=== PATIENT | male | born 1980 | race Caucasian/White ===

== ENCOUNTER 2019-10-06 11:09 | Outpatient (CLI) | payer OTHER, SELFPAY ==
--- NOTE | ~2019-10-06 | XR_ITS ---
EXAMINATION: XR chest 2V EXAM DATE: 10/06/2019 11:37 INDICATION: Cough and shortness of breath. TECHNIQUE: Frontal and lateral projections of the chest obtained and reviewed. There is no prior danie dy for comparison. FINDINGS: The lungs are clear. There are no pleural effusions. The cardiomediastinal silhouette is within normal limits. There is no pneumothorax suspected. The bones and soft tissues are unremarkab le. IMPRESSION: Unremarkable chest x-ray exam. Reviewed, dictated and finalized at location B. REMOVER
[2019-10-06 11:58] LABS: Influenza Control Positive
== END 2019-10-06 11:10 | disposition home or self-care (01) ==
PROVIDERS: PCP Internal Medicine; Visit Provider Physician Assistant
DX: R05 Cough (principal); R06.02 Shortness of breath; R68.89 Other general symptoms and signs
CPT/HCPCS: 71046; 87804

== ENCOUNTER 2020-10-15 17:12 | Outpatient (CLI) | payer OTHER, SELFPAY | END 2020-10-15 17:13 | disposition home or self-care (01) | LOC: ANHCOVIDVC 17:12 | PROVIDERS: PCP Internal Medicine | DX: Z23 Encounter for immunization (principal) | CPT/HCPCS: 0001A; 91300 ==

== ENCOUNTER 2020-11-05 17:13 | Outpatient (CLI) | payer OTHER, SELFPAY | END 2020-11-05 17:14 | disposition home or self-care (01) | LOC: ANHCOVIDVC 17:13 | PROVIDERS: PCP Internal Medicine | DX: Z23 Encounter for immunization (principal) | CPT/HCPCS: 0002A; 91300 ==

== ENCOUNTER 2022-05-05 15:35 | Outpatient (CLI) | payer OTHER, SELFPAY ==
--- NOTE | ~2022-05-05 | XR_ITS ---
XR knee RT 3V 05/05/2022 16:02 INDICATION: Right knee pain after fall PROCEDURE: 3 views right knee COMPARISON: 02/08/2014 FINDINGS: Fracture, dislocation or subluxation is not identified. No significant joint effusion. Cent er The soft tissues appear within normal limits. No foreign bodies are identified. IMPRESSION: 1: NO ACUTE BONE OR JOINT ABNORMALITY IDENTIFIED. Reviewed, dictated and finalized at location B.
== END 2022-05-05 15:36 | disposition home or self-care (01) ==
PROVIDERS: PCP Internal Medicine; Visit Provider Physician Assistant
DX: M25.561 Pain in right knee (principal)
CPT/HCPCS: 73562

== ENCOUNTER → 2022-06-03 16:14 | Outpatient (CLI) | payer OTHER, SELFPAY ==
--- NOTE | ~2022-06-03 | MR_ITS ---
EXAMINATION: MR knee RT wo con DATE: 06/03/2022 17:14 INDICATION: Right knee pain TECHNIQUE: Magnetic resonance imaging (MRI) of the right knee was performed without intravenous contr ast. Sequences included coronal PD-weighted FSE, coronal PD-weighted FS FSE, sagittal T2-weighted FS E, sagittal PD-weighted FS FSE and axial PD weighted fat saturated FSE. COMPARISON: None. FINDINGS: Medial compartment: Medial meniscus is normal. Articular cartilage is normal. Lateral compartment: Lateral meniscus is normal. Articular cartilage is normal. Patellofemoral compartment: Articular cartilage is normal. Ligaments and tendons: The anterior cruciate ligament demonstrates a normal angle relative to Blumensaat line. It appears th ickened with increased intrasubstance signal surrounding intact appearing linear ligament fibers with a celery stalk appearance consistent with mucoid degeneration without discrete tear. Posterior cru ciate ligament is normal. The medial collateral ligament and fibular collateral ligament complex are normal. The extensor mechanism is normal. The visualized medial and lateral hamstring tendons as well as the iliotibial band are normal. Fluid: Physiologic amount of fluid in the joint space. No loose osteochondral bodies identified. There is a small medial plical band which does not extend across the medial rim of the medial trochlea. Osseous/other: Normal marrow signal. No fracture or pathologic marrow replacing process. IMPRESSION: 1. Mucoid degeneration of the anterior cruciate ligament without discrete tear or secondary signs of tear such as meniscal tear, other ligament injuries or anterior subluxation of the tibia. Correlate w ith physical exam to asses for degree of functional competence. Reviewed, dictated and finalized at location A. IMPRESSION: 1. Mucoid degeneration of the anterior cruciate ligament without discrete tear or secondary signs of tear such as meniscal tear, other ligament injuries or an terior subluxation of the tibia. Correlate with physical exam to asses for degr ee of functional competence.
== END ==
PROVIDERS: PCP Internal Medicine; Visit Provider Nurse Practitioner Family
DX: M25.561 Pain in right knee (principal)
CPT/HCPCS: 73721

== ENCOUNTER 2022-10-09 11:48 | Emergency (ER) | payer BC, SELFPAY ==
[2022-10-09 11:57] VITALS: BP 105/77; PULSE 80; RESP 18; TEMP 36.1; O2SAT 97
--- NOTE | 2022-10-09 12:22 | ED.SKABFB ---
HPI - Skin/Abscess/Foreign Bdy General Chief complaint: Skin/Abscess/Foreign Body Stated complaint: Insect Bite Lt Hand Time Seen by Provider: 10/09/22 12:12 Source: patient Mode of arrival: ambulatory Limitations: no limitations History of Present Illness HPI narrative: Patient presents today with an insect bite to his left hand. He was bit on the dorsum of his hand just 1 hour prior to arrival. He did not see what this shows bit/stung him. Reports pain, but denies any itching. Currently rates his pain 5/10. He has not tried any yciq-hwz-hqarkws treatment prior to arrival. Related Data Allergies Allergy/AdvReac Type Severity Reaction Status Date / Time No Known Allergies Allergy Verified 10/09/22 12:09 Review of Systems Review of Systems: CONSTITUTIONAL: Denies body aches, fever, chills, or sweats. EYES: Denies visual changes, redness, or discharge. ENT: Denies rhinorrhea, congestion, sore throat, or otalgia. CARDIOVASCULAR: Denies chest pain, palpitations, or edema. RESPIRATORY: Denies cough or dyspnea. GASTROINTESTINAL: Denies abdominal pain, nausea, vomiting, or diarrhea. GENITOURINARY: Denies dysuria or hematuria. SKIN: Denies rash, itching. + insect sting/bite MUSCULOSKELETAL: Denies back pain, joint pain, or myalgia. NEUROLOGIC: Denies headache, numbness, tingling, or weakness. PSYCH: Denies depression or anxiety. [facility] Past Medical History Medical History Anxiety Dog bite Medial meniscus tear Right knee pain SOB (shortness of breath) Strain of right knee Vision abnormalities Surgical History Surgical History History of plastic surgery DOG BIT History of wisdom tooth extraction 2017 Family History Family History Father Patient's father is in good health Sibling Patient's sister is in good health Social History Social History Smoking status: Former smoker Second hand tobacco smoke exposure: Yes Smoking end date: 08/10/07 Alcohol intake: current Substance use type: marijuana Living arrangements: with family Occupation/Education: occupation Additional occupation/education comments: Deja @ [employer] Gender identity (if verbalized by the patient): Male Comments At time of signature, I have reviewed and agree with nursing past medical, surgical, social and family history unless otherwise noted. Please see nursing chart for further information. There is no relevant family history pertinent to the presenting complaint Exam Narrative: GENERAL: Well-appearing, well-nourished, and in no acute distress. HEAD: Normocephalic, atraumatic. EYES: EOMI. No redness or drainage. Conjunctivae normal. ENT: Mucous membranes pink and moist. NECK: Normal AROM. CHEST: No respiratory distress. EXTREMITIES: Normal range of motion. SKIN: Warm, dry, no rash. Capillary refill normal. Normal skin turgor. 3 x 3.5 cm area of bruising with 1 puncture wound in the center to the dorsum of the left hand in between the 1st and 2nd fingers. This area is tender to palpation. No induration noted. Distal sensation intact. Capillary refill normal. Full range of motion of all fingers. NEURO: No focal deficits. Alert and oriented x3. Gait steady. PSYCH: Normal affect. No signs of depression or anxiety. Course Course Level of Care: Express Care Visit Vital Signs Vital signs: Vital Signs Temperature 96.9 F L 10/09/22 11:57 Pulse Rate 80 10/09/22 11:57 Respiratory Rate 18 10/09/22 11:57 Blood Pressure 105/77 10/09/22 11:57 Pulse Oximetry 97 10/09/22 11:57 Oxygen Delivery Room Air 10/09/22 11:57 Temperature 96.9 F L 10/09/22 11:57 Pulse Rate 80 10/09/22 11:57 Respiratory Rate 18 10/09/22 11:57 Blood Pressure 105/77
== END 2022-10-09 12:33 | disposition home or self-care (01) ==
PROVIDERS: Emergency Provider Nurse Practitioner; PCP Internal Medicine
DX: S60.562A Insect bite (nonvenomous) of left hand, initial encounter (principal); T63.481A Toxic effect of venom of other arthropod, accidental (unintentional), initial encounter; Z87.891 Personal history of nicotine dependence
CPT/HCPCS: 99213; G0463

== ENCOUNTER 2025-05-15 10:37 | Outpatient (CLI) | payer BC, SELFPAY ==
--- NOTE | ~2025-05-15 | MMUS_ITS ---
EXAMINATION: MM diagnostic cecelia BI w yasmeen, US breast LT limited INDICATION: 44-year old MALE; with palpable lump in the left breast for 2 months, presents for imaging evaluation. COMPARISON: Baseline TECHNIQUE: Digital breast tomosynthesis CC and MLO views of BILATERAL breasts were obtained with computer-aided detection to assist in interpretation of the study. A radiopaque skin marker was placed over the palpable area in the left breast. FINDINGS: There are scattered areas of fibroglandular density.There is moderate volume of fibroglandular tissue in LEFT breast compatible with gynecomastia. This finding correlates to the radiopaque skin marker. There are no other suspicious masses, calcifications, architectural distortion or any other abnormality in BILATERAL breast. LEFT BREAST ULTRASOUND FINDINGS: Targeted evaluation of the area of palpable lump in the left breast was completed. Normal appearing fibroglandular tissue is identified. There are no suspicious cystic or solid mass seen, IMPRESSION: FINDINGS COMPATIBLE WITH GYNECOMASTIA CORRELATES TO PALPABLE LUMP IN THE LEFT BREAST . RECOMMENDATION: FURTHER EVALUATION OF PATIENT'S PALPABLE LUMP SHOULD BE BASED ON CLINICAL IMPRESSION. FOLLOW-UP CLINICALLY WARRANTED. BI-RADS 2, BENIGN Reviewed, dictated and finalized at location C. IMPRESSION: FINDINGS COMPATIBLE WITH GYNECOMASTIA CORRELATES TO PALPABLE LUMP IN THE LEFT B REAST . RECOMMENDATION: FURTHER EVALUATION OF PATIENT'S PALPABLE LUMP SHOULD BE BASED ON CLINICAL IMPRE SSION. FOLLOW-UP CLINICALLY WARRANTED. BI-RADS 2, BENIGN
--- OUTSIDE RECORDS SUMMARY | 2025-05-15 12:03 | XMS_ITS | Clinical Summary ---
Author Organization [facility] Address [address] [place] [address] Care Team Providers Care Wheat Grower Name Role Phone None, Provider MD Primary Care Provider Unavaila ble Allergies No known active allergies Medications venlafaxine XR 75 MG 24 hr capsule Take 75 mg by mouth daily. Active naloxone 4 MG/0.1ML nasal spray 1 spray by Nasal route as needed for Opioid reversal. 2 each 0 Active ondansetron (ZOFRAN-ODT) 4 MG disintegrating tablet Take 1 tablet (4 mg total) by mouth every 8 (eight) hours as needed for Nausea. 20 tablet 5 Active famotidine (PEPCID) 20 MG tablet Take 1 tablet (20 mg total) by mouth 2 (two) times daily. 60 tablet 5 Active Family History Medical History Relation Comments Diabetes Maternal Grandmother Relation Status Comments Maternal Grandmother Social History Tobacco Use Types Packs/Day Years Used Date Smoking Tobacco: Former Smokeless Tobacco: Current Chew Alcohol Use Standard Drinks/Week Comments Yes 0 (1 standard drink = 0.6 oz pur e alcohol) daily Sex and Gender Information Value Date Recorded Sex Assigned at Not on file Legal Sex Male 8:08 PM CDT Gender Identity Not on file Sexual Orientation Not on file Last Filed Vital Signs Vital Sign Reading Time Taken Comments Blood Pressure 146/90 10/24/2024 3:06 PM CDT Pulse 88 10/24/2024 3:06 PM CDT Temperature 37.1 C (98.7 F) 10/24/2024 3:06 PM CDT Respiratory Rate 20 10/24/2024 3:06 PM CDT Oxygen Saturation 95% 10/24/2024 3:06 PM CDT Inhaled Oxygen Concentration - - Weight 104.3 kg (230 lb) 10/24/2024 10:30 AM CDT Height 180.3 cm (5' 11) 10/24/2024 10:30 AM CDT Body Mass Index 32.08 10/24/2024 10:30 AM CDT Plan of Treatment Health Maintenance Due Date Last Done Comments Annual Physical 1984 Hepatitis C 1999 Hepatitis B Vaccines (1 of 3 - 19+ 3-dose series) 2000 HPV Vaccines (1 - 3-dose SCD M series) 2008 COVID-19 Vaccine (4 - 2024-2 6 season) 2025 12/06/2021, 11/05/2020, 10/15/2020 DTaP, Tdap and Td Vaccines ( 2 - Td or Tdap) 05/02/2029 05/02/2019 Meningococcal B Vaccine Aged Out No l [place] eligible based on patient's age to complete this topic Meningococcal Vaccine Aged Out No [place] eligible based on patient's age to complete this topic Pneumococcal Vaccine: Pediatrics (0 to 5 Years) and At-Risk Patients (6 to 49 Years) Aged Out No longer eligible b ased on patient's age to complete this topic RSV Immunizations Under 20 Months Aged Out No longer eligible b ased on patient's age to complete this topic Insurance Care Teams Wheat Grower Relationship Specialty Start Date End Date None, Provider, MD PCP - General UNKNOWN PHYSICIAN SPECIALTY 10/24/24
--- OUTSIDE RECORDS SUMMARY | 2025-05-15 12:03 | XMS_ITS | Patient Health Record ---
Author Organization [facility] [employer] Address [address] [facility] [address] [place] [address] Care Team Providers Care Assembler Chassis Name Role Phone Ayana Campos Unavailable [phone] Reason For Referral No Information Plan Of Treatment No Information
--- OUTSIDE RECORDS SUMMARY | 2025-05-15 12:03 | XMS_ITS | Encounter Summary ---
Author Organization [facility] Address [address] [place] [address] Care Team Providers Care Operations Manager Assistant Name Role Phone Favio Butcher MD Primary Care Provider [phone] None, Provider Primary Care Provider Unavaila ble Encounter Details Date Type Department Care Team (Late st Contact Info) Description 06/16/2017 Abstract [facility] CONVERSION [address] [place] [address] , Generic ConversionMD Social History Tobacco Use Types Packs/Day Years Used Date Smoking Tobacco: Never Assessed Sex and Gender Information Value Date Recorded Sex Assigned at Not on file Legal Sex Male 8:08 PM CDT Gender Identity Not on file Sexual Orientation Not on file documented as of this encounter Plan of Treatment Not on file documented as of this encounter Visit Diagnoses Not on filedocumented in this encounter Additional Health Concerns Infection Onset Date Last Indicated Resolved Time COVID-19 Rule Out 02/12/2020 02/12/2020 02/14/2020 6:49 PM CDT documented as of this encounter Care Teams Operations Manager Assistant Relationship Specialty Start Date End Date Favio Butcher MD [address] [place] [address] PCP - General INTERNAL MEDICINE 03/27/19 10/23/24 None, ProviderMD PCP - General UNKNOWN PHYSICIAN SPECIALTY 10/24/24 documented as of this encounter
--- OUTSIDE RECORDS SUMMARY | 2025-05-15 12:03 | XMS_ITS | Clinical Summary ---
Author Organization [facility] [employer] Address [address] [place] [address] Care Team Providers Care Shell Grader Name Role Phone Favio Butcher DO Primary Care Provider [phone] Source Comments [facility] [employer],non-owned Affiliates and Associated Physician Practices is amultiple site organization consisting of ambulatory clinics and hospital sitesin [place], [place], [place] and [place]. This disclosure is being madepursuant to the Care Everywhere program and may not contain all information available regarding this patient. Last updated 18.[employer] Allergies No known active allergies Medications * This document contains information received from the source organization and may not represent a complete record from that organization. * Be aware that medications may not be up to date on this document. Alwaysverify current medications with the patient. venlafaxine XR 24hr (EFFEXOR XR) 150 MG capsuleIndicat ions:Major Depressive Disorder,Panic Disorder Take 1 capsule by mouth daily with dinner Reasons: Major Depressive Disorder, Panic Disorder 30 capsule 9 Active acetaminophen (TYLENOL) 500 MG tablet Take 1 tablet by mouth every 4 hours as needed for Pain Maximum allowable Acetaminophen amount = 4 Grams (4000 mg) / 24 hours. 40 tablet 9 Active ibuprofen (MOTRIN) 600 MG tablet Take 1 tablet by mouth every 6 hours as needed for Pain 40 tablet 9 Active cyclobenzaprin e (FLEXERIL) 5 MG tablet Take 1 tablet by mouth 3 times daily as needed (Muscle spasms) 30 tablet 9 Active Active Problems Problem Noted Date Diagnosed Date Dog bite of face 05/05/2019 Suicidal ideation 12/09/2018 Immunizations Immunization Administration Dates Next Due TDAP (7yrs+) 05/02/2019 Social History Tobacco Use Types Packs/Day Years Used Date Smoking Tobacco: Former Cigarettes Smokeless Tobacco: Current Snuff Tobacco Cessation:Ready to Q uit: No; Counseling Given: Yes Alcohol Use Standard Drinks/Week Comments Yes 0 (1 standard drink = 0.6 oz pur e alcohol) Sex and Gender Information Value Date Recorded Sex Assigned at Not on file 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 Gender Identity Not on file Sexual Orientation Not on file Last Filed Vital Signs Vital Sign Reading Time Taken Comments Blood Pressure 108/75 05/05/2019 1:33 PM CDT Pulse 74 05/05/2019 1:33 PM CDT Temperature 36.8 C (98.2 F) 05/01/2019 10:01 PM CDT Respiratory Rate 18 05/01/2019 10:01 PM CDT Oxygen Saturation 98% 05/02/2019 1:04 AM CDT Inhaled Oxygen Concentration - - Weight 85.5 kg (188 lb 8 oz) 05/05/2019 1:33 PM CDT Height 180.3 cm (5' 11) 05/05/2019 1:33 PM CDT Body Mass Index 26.29 05/05/2019 1:33 PM CDT Plan of Treatment Health Maintenance Due Date Last Done Comments LIPID TESTING 1981 HIV SCREENING 1996 HEPATITIS C SCREENING 09/21/1999 HEPATITIS B VACCINE (1 of 3 - 19+ 3-dose series) 2000 HPV VACCINE (1 - 3-dose SCDM series) 2008 DEPRESSION SCREENING 08/10/2024 COVID-19 VACCINE (1 - 2023-2 5 season) 2025 INFLUENZA VACCINE (#1) 2025 DTAP/TDAP/TD VACCINES (2 - T d or Tdap) 05/02/2029 05/02/2019 ZOSTER VACCINE (1 of 2) 2031 HIB VACCINE Aged Out No longer eligi ble based on patient's age to complete this topic MENINGOCOCCAL (Group B) VACC INE SHARED DECISION-MAKING Aged Out No longer eligibl e based on patient's age to complete this topic MENINGOCOCCAL GROUPS A/C/Y/W VACCINE Aged Out No longer eligible b ased on patient's age to complete this topic PNEUMOCOCCAL VACCINE Aged Out No long er eligible based on patient's age to complete this topic Insurance ANTHEM ANTHEM [employer] LIABILITY [employer] Liability Advance Directives * Full Code (Latest Code Status on File) Date Activated Date Inactivated Comments 12/09/2018 4:18 PM 12/10/2018 2:08 PM * Full Code Date Activated Date Inactivated Comments 12/09/2018 2:26 PM 12/09/2018 4:18 PM Care Teams Shell Grader Relationship Specialty Start Date End Date Favio Butcher DO [address] [facility] [address] [place] [address] PCP - General Internal Medicine 07/01/16
--- OUTSIDE RECORDS SUMMARY | 2025-05-15 12:03 | XMS_ITS | Encounter Summary ---
Author Organization [facility] Address [address] [place] [address] Care Team Providers Care Manager Solution Name Role Phone Favio Butcher MD Primary Care Provider [phone] None, Provider Primary Care Provider Unavaila ble Encounter Details Date Type Department Care Team (Late st Contact Info) Description 08/11/2017 Abstract [facility] CONVERSION [address] [place] [address] , Generic ConversionMD Social History Tobacco Use [...] documented as of this encounter Care Teams Manager Solution Relationship Specialty Start Date End Date Favio Butcher MD [address] [place] [address] PCP - General INTERNAL MEDICINE 03/27/19 10/23/24 None, ProviderMD PCP - General UNKNOWN PHYSICIAN SPECIALTY 10/24/24 documented as of this encounter
== END 2025-05-15 10:38 | disposition home or self-care (01) ==
PROVIDERS: PCP Internal Medicine; Visit Provider Internal Medicine
DX: N63.20 Unspecified lump in the left breast, unspecified quadrant (principal)
CPT/HCPCS: 76642; 77062; 77066; G0279